=== PATIENT | male | born 1975 | race Caucasian/White ===

== ENCOUNTER 2016-07-09 14:57 | Emergency (ER) | payer OTHER ==
[~2016-07-09] VITALS: Ht 182.8 cm; Wt 77.1 kg
[~2016-07-09 14:57] MED LIST: ANAPROX DS550 MG PO; FLEXERIL10 MG PO; HYDROCODONE BIT1 T11 PO; IBU-8800 MG PO; KENALOG0.1% TP; MEDROL DOSEPAK4 MG PO; MOTRIN800 MG PO; NORCO 325 MG-51 TAB PO; PREDNICOT20 MG PO; ROBAXIN750 MG PO; TRAMADOL HCL50 MG PO; VICODIN 5/500 505 MG PO; VICODIN ES 7501 TAB PO; XANAX0.25 MG PO
[2016-07-09] MEDS ORDERED: HYDROCODONE BIT1 T11 PO (15:28)
[2016-07-09] MEDS ORDERED: OMNICEF300 MG PO (15:28)
== END 2016-07-09 15:41 | disposition home or self-care (01) ==
LOC: ED 14:57
DX: T22.111A Burn of first degree of right forearm, initial encounter (principal); F17.200 Nicotine dependence, unspecified, uncomplicated; H92.03 Otalgia, bilateral; X13.1XXA Other contact with steam and other hot vapors, initial encounter; Y93.89 Activity, other specified; Y92.89 Other specified places as the place of occurrence of the external cause; Y99.9 Unspecified external cause status

== ENCOUNTER → 2016-08-14 | Outpatient (CLI) | payer OTHER ==
[~2016-08-14] MED LIST changes: +OMNICEF300 MG PO
== END | disposition home or self-care (01) ==
LOC: CT 09:00
DX: H65.33 Chronic mucoid otitis media, bilateral (principal); H72.93 Unspecified perforation of tympanic membrane, bilateral; J32.2 Chronic ethmoidal sinusitis; J32.0 Chronic maxillary sinusitis; J32.3 Chronic sphenoidal sinusitis

== ENCOUNTER 2016-09-17 22:30 | Emergency (ER) | payer OTHER ==
[~2016-09-17] VITALS: Ht 182.8 cm; Wt 74.8 kg
[2016-09-18] MEDS ORDERED: HYDROCODONE BIT1 T11 PO (00:01)
== END 2016-09-18 00:46 | disposition home or self-care (01) ==
LOC: ED 22:30
DX: S62.91XA Unspecified fracture of right hand, initial encounter for closed fracture (principal); F17.200 Nicotine dependence, unspecified, uncomplicated; W22.8XXA Striking against or struck by other objects, initial encounter; Y93.89 Activity, other specified; Y92.810 Car as the place of occurrence of the external cause; Y99.9 Unspecified external cause status

== ENCOUNTER 2017-04-22 10:43 | Emergency (ER) | payer OTHER ==
[~2017-04-22] VITALS: Ht 182.8 cm; Wt 77.1 kg
[2017-04-22] MEDS ORDERED: TAMIFLU 75MG CA75 MG PO (12:02)
[2017-04-22] MEDS ORDERED: Zofran4 MG SL (12:02)
[2017-04-22] MEDS ORDERED: Motrin,Rufen800 MG PO (12:02)
== END 2017-04-22 12:50 | disposition home or self-care (01) ==
LOC: ED 10:43
DX: J10.1 Influenza due to other identified influenza virus with other respiratory manifestations (principal); F17.200 Nicotine dependence, unspecified, uncomplicated

== ENCOUNTER 2017-08-06 09:46 | Emergency (ER) | payer OTHER ==
[~2017-08-06] VITALS: Ht 182.8 cm; Wt 72.6 kg
[~2017-08-06 09:46] MED LIST changes: +Motrin,Rufen800 MG PO; +TAMIFLU 75MG CA75 MG PO; +Zofran4 MG SL
[2017-08-06] MEDS ORDERED: NORCO 5-325 TA1 EACH PO (11:03)
== END 2017-08-06 11:21 | disposition home or self-care (01) ==
LOC: ED 09:46
DX: S92.252A Displaced fracture of navicular [scaphoid] of left foot, initial encounter for closed fracture (principal); F17.200 Nicotine dependence, unspecified, uncomplicated; Z79.899 Other long term (current) drug therapy; X58.XXXA Exposure to other specified factors, initial encounter; Y93.53 Activity, golf; Y92.89 Other specified places as the place of occurrence of the external cause; Y99.8 Other external cause status

== ENCOUNTER 2020-01-25 09:54 | Emergency (ER) | payer SELFPAY ==
[~2020-01-25] VITALS: Wt 77.1 kg
[~2020-01-25 09:54] MED LIST changes: +NORCO 5-325 TA1 EACH PO
[2020-01-25] MEDS ORDERED: CYCLOBENZAPRINE5 M3 PO (12:25)
[2020-01-25] MEDS ORDERED: Motrin,Rufen800 MG PO (12:25)
== END 2020-01-25 12:26 | disposition home or self-care (01) ==
LOC: ED 09:54
DX: M54.16 Radiculopathy, lumbar region (principal); Z79.899 Other long term (current) drug therapy

== ENCOUNTER → 2020-02-18 | Outpatient (CLI) | payer SELFPAY ==
[~2020-02-18] MED LIST changes: +CYCLOBENZAPRINE5 M3 PO
== END | disposition home or self-care (01) ==
LOC: COVID19 15:19
PROVIDERS: ATTEND Social Worker Clinical
DX: Z20.828 Contact with and (suspected) exposure to other viral communicable diseases (principal)

== ENCOUNTER → 2020-03-06 | Outpatient (CLI) | payer SELFPAY | END | disposition home or self-care (01) | LOC: COVID19 12:06 | PROVIDERS: ATTEND Internal Medicine | DX: Z20.828 Contact with and (suspected) exposure to other viral communicable diseases (principal) ==

== ENCOUNTER 2021-11-17 06:04 | Emergency (ER) | payer SELFPAY ==
[~2021-11-17] VITALS: Ht 182.8 cm; Wt 77.1 kg
[2021-11-17] MEDS ORDERED: NAPROXEN250 MG PO (08:08)
[2021-11-17] MEDS ORDERED: MORPHINE SULFAT15 MG PO (08:08)
[2021-11-17] MEDS ORDERED: TYLENOL325 M1 PO (08:08)
== END 2021-11-17 08:15 | disposition home or self-care (01) ==
LOC: ED 06:04
DX: S59.201A Unspecified physeal fracture of lower end of radius, right arm, initial encounter for closed fracture (principal); W18.39XA Other fall on same level, initial encounter; Y93.89 Activity, other specified; Y92.89 Other specified places as the place of occurrence of the external cause; Y99.8 Other external cause status

== ENCOUNTER → 2021-11-21 | Day surgery (SDC) | payer MEDICAID ==
[~2021-11-21] VITALS: Ht 182.8 cm; Wt 77.1 kg
[~2021-11-21] MED LIST changes: +MORPHINE SULFAT15 MG PO; +NAPROXEN250 MG PO; +TYLENOL325 M1 PO
[2021-11-21 08:40] VITALS: BP 112/75
[2021-11-21 10:41] VITALS: BP 95/57
[2021-11-21 10:55] VITALS: BP 93/63
[2021-11-21 11:22] VITALS: BP 106/72
== END | disposition home or self-care (01) ==
LOC: SDC 11-20 14:00
PROVIDERS: ATTEND Orthopaedic Surgery
DX: S52.571A Other intraarticular fracture of lower end of right radius, initial encounter for closed fracture (principal); W19.XXXA Unspecified fall, initial encounter; Y93.89 Activity, other specified; Y92.89 Other specified places as the place of occurrence of the external cause; Y99.8 Other external cause status

== ENCOUNTER → 2021-12-06 | Outpatient (CLI) | payer MEDICAID | END | disposition home or self-care (01) | LOC: ORTHO 01:07 | PROVIDERS: ATTEND Orthopaedic Surgery | DX: S52.571D Other intraarticular fracture of lower end of right radius, subsequent encounter for closed fracture with routine healing (principal); X58.XXXD Exposure to other specified factors, subsequent encounter ==

== ENCOUNTER → 2022-01-02 | Outpatient (CLI) | payer MEDICAID | END | disposition home or self-care (01) | LOC: ORTHO 02:16 | PROVIDERS: ATTEND Orthopaedic Surgery | DX: S52.571D Other intraarticular fracture of lower end of right radius, subsequent encounter for closed fracture with routine healing (principal); X58.XXXD Exposure to other specified factors, subsequent encounter ==

== ENCOUNTER → 2022-05-19 | Outpatient (CLI) | payer MEDICAID | END | disposition home or self-care (01) | LOC: ORTHO 02:19 | PROVIDERS: ATTEND Orthopaedic Surgery | DX: S52.591D Other fractures of lower end of right radius, subsequent encounter for closed fracture with routine healing (principal); M25.531 Pain in right wrist; Z98.890 Other specified postprocedural states; X58.XXXD Exposure to other specified factors, subsequent encounter ==